=== PATIENT | male | born 1975 | race Caucasian/White ===

== ENCOUNTER 2018-06-21 09:31 | Emergency (ER) | payer BC ==
[2018-06-21 10:47] LABS: Urine Blood NEGATIVE (NEG); Urine Glucose NEGATIVE (NEG); Urine Protein NEGATIVE (NEG); Urine Specific Gravity 1.015 (1.005-1.030)
[2018-06-21 10:57] LABS: Absolute Lymphocytes (CBC) 1.8 K/uL (0.7-4.9); Absolute Monocytes 0.5 K/uL (0.1-1.3); Absolute Neutrophil 5.7 K/uL (1.8-8.0); Basophils % 0.5 % (0-1.3); Eosinophils % 1.7 % (0-4.4); Hematocrit 43.4 % (39.6-49.0); Lymphocytes % 21.5 % (15.3-44.8); MCH 32.4 pg (27.0-35.0); MCV 91.8 fL (80-100); MPV 8.8 fL (7.6-11.3); Monocytes % 6.5 % (3.3-12.3); RBC Red Blood Cell Count 4.73 M/uL (4.33-5.43)
[2018-06-21 10:58] LABS: Protime INR 1.11
[2018-06-21 11:11] LABS: ALT/SGPT 55 U/L (12-78); AST/SGOT 19 U/L (15-37); Albumin 4.5 g/dL (3.4-5.0); Alkaline Phosphatase 72 U/L (45-117); BUN Blood Urea Nitrogen 17 mg/dL (7-18); Bicarbonate 26 mmol/L (21-32); Bilirubin Direct 0.2 mg/dL (0-0.2); Bilirubin Total 0.8 mg/dL (0.2-1.0); Glucose Level 94 mg/dL (74-106); Magnesium 2.5 mg/dL (1.8-2.4); NT PRO-BNP 8 pg/mL (<125); Potassium 3.9 mmol/L (3.5-5.1); Protein, Total 8.1 g/dL (6.4-8.2); Sodium Level 137 mmol/L (136-145); Troponin (Emerg Dept Use Only) < 0.02 ng/mL (0.0-0.045)
--- NOTE | 2018-06-21 11:32 | RAD REPORT ---
EXAM DESCRIPTION: RAD - Chest Single View - 06/21/2018 10:57 am CLINICAL HISTORY: Chest pain COMPARISON: None. TECHNIQUE: AP portable chest image was obtained 1042 hours . FINDINGS: No comparison is available. Chronic interstitial lung disease is evident. Patient has sign ificant elevation of the right hemidiaphragm with bowel interposed between the liver and diaphragm. H eart and vasculature are normal. No measurable pleural effusion and no pneumothorax. No acute bony ab normality seen. No acute aortic findings suspected. IMPRESSION: Chronic interstitial lung disease on a baseline examination. No focal mass or consolidat ion.
--- NOTE | 2018-06-21 13:06 | ER ---
Nurse's Notes [facility] Name: Dao Mc Age: 42 yrs Sex: Male : 1975 Arrival Date: 06/21/2018 Time: 09:33 Bed 6 Private MD: Diagnosis: Chest pain, unspecified Presentation: 06/21 09:54 Presenting complaint: Patient states: Chest pain with deep breathing that started aj yesterday morning. Denies cough or fever. Transition of care: patient was not received from another setting of care. Onset of symptoms was June 20, 2018. Risk Assessment: Do you want to hurt yourself or someone else? Patient reports no desire to harm self or others. Initial Sepsis Screen: Does the patient meet any 2 criteria? No. Patient's initial sepsis screen is negative. Does the patient have a suspected source of infection? No. Patient's initial sepsis screen is negative. Care prior to arrival: None. 09:54 Method Of Arrival: Ambulatory aj 09:54 Acuity: FERDDIE 3 aj Triage Assessment: 09:57 General: Appears in no apparent distress. comfortable, Behavior is calm, cooperative, aj appropriate for age. Pain: Complains of pain in right clavicle and anterior aspect of right upper chest. Neuro: Level of Consciousness is awake, alert, obeys commands, Oriented to person, place, time, situation, Appropriate for age. Cardiovascular: Reports chest pain, Capillary refill < 3 seconds Patient's skin is warm and dry. Respiratory: Reports shortness of breath pain with respiration Airway is patent Respiratory effort is even, unlabored, Respiratory pattern is regular, symmetrical. Derm: Skin is intact, is healthy with good turgor, Skin is pink, warm \\T\\ dry. normal. Historical: - Allergies: 09:57 Amoxicillin; aj - Home Meds: 09:57 Fluoxetine Oral [Active]; Zyrtec 10 mg Oral tab 1 tab once daily [Active]; aj - PMHx: :57 Partially collapsed lung; aj - PSHx: 09:57 Diaphragmatic Plication; aj - Immunization history:: Adult Immunizations up to date. - Social history:: Smoking status: Patient/guardian denies using tobacco. - Ebola Screening: : Patient negative for fever greater than or equal to 101.5 degrees Fahrenheit, and additional compatible Ebola Virus Disease symptoms Patient denies exposure to infectious person Patient denies travel to an Ebola-affected area in the 21 days before illness onset No symptoms or risks identified at this time. Screenin:41 Abuse screen: Denies threats or abuse. Denies injuries from another. Nutritional bp screening: No deficits noted. Tuberculosis screening: No symptoms or risk factors identified. Fall Risk None identified. Assessment: 10:00 General: Appears in no apparent distress. comfortable, Behavior is calm, cooperative, bp appropriate for age. Pain: Complains of pain in anterior aspect of right upper chest Pain does not radiate. Pain began suddenly. Neuro: Level of Consciousness is awake, alert, obeys commands, Oriented to person, place, time, situation, Appropriate for age. Cardiovascular: No deficits noted. Respiratory: Airway is patent Respiratory effort is even, unlabored, Respiratory pattern is regular, symmetrical. GI: No signs and/or symptoms were reported involving the gastrointestinal system. : No signs and/or symptoms were reported regarding the genitourinary system. EENT: No deficits noted. Derm: No deficits noted. Musculoskeletal: Circulation, motion, and sensation intact. Range of motion: intact in all extremities. 10:40 Reassessment: Patient and/or family updated on plan of care and expected duration. Pain aa5 level reassessed. Patient is alert, oriented x 3, equal unlabored respirations, skin warm/dry/pink. Pt states "I don't need anything for the pain right now". Pt notified of wait time for lab results. Pt sitting up in bed, bed in low position, side rails x 2, call villarreal within reach. . 11:55 Reassessment: ALL CURRENT ORDERS COMPLETED, DISPO PENDING, VS STABLE ON MONITOR. bp 13:02 Reassessment: ALL CURRENT STUDIES COMPLETED, DISPO PENDING. bp 13:45 Reassessment: D/C ON HOLD FOR PULMONOLOGY C/S. bp 14:17 Reassessment: PT D/C HOME AMBULATORY, DX WITH NON-SPECIFIC CHEST PAIN. bp Vital Signs: 09:57 BP 128 / 91; Pulse 90; Resp 20; Temp 97.5; Pulse Ox 95% on R/A; Weight 102.06 kg; aj Height 6 ft. 2 in. (187.96 cm); 10:42 BP 126 / 85; Pulse 84; Resp 21; Pulse Ox 94% on R/A; mh5 11:56 BP 125 / 88; Pulse 69; Resp 19; Pulse Ox 95% ; bp 13:03 BP 134 / 91; Pulse 72; Resp 18; Pulse Ox 97% ; bp 09:57 Body Mass Index 28.89 (102.06 kg, 187.96 cm) ED Course: 09:33 Patient arrived in ED. rg4 09:38 Herve Borges MD is Attending Physician. kdr 09:55 Triage completed. aj 09:56 EKG done, by biomass technician. reviewed by Herve Borges MD. at1 09:57 Arm band placed on right wrist. Patient placed in an exam room. EKG completed in triage. Results shown to MD. 10:05 Cedrick Guillen, PAULINE is Primary Nurse. bp 10:38 Initial lab(s) drawn, by me, sent to lab. Inserted saline lock: 20 gauge in right aa5 antecubital area, using aseptic technique. Blood collected. 10:41 Patient has correct armband on for positive identification. Bed in low position. Call bp light in reach. Side rails up X2. maintenance technician 2nd shift on. Pulse ox on. NIBP on. 10:43 No provider procedures requiring assistance completed. aa5 10:43 Patient maintains SpO2 saturation greater than 95% on room air. aa5 10:43 Warm blanket given. mh5 10:56 X-ray completed. Portable x-ray completed in exam room. Patient tolerated procedure jb2 well. 10:57 XRAY Chest (1 view) In Process Unspecified. EDMS 13:30 IV discontinued, Pressure dressing applied. 5 13:30 IV discontinued, Pressure dressing applied. bp Administered Medications: No medications were administered Outcome: 13:05 Discharge ordered by . kdr 14:20 Discharged to home ambulatory. bp 14:20 Condition: stable 14:20 Discharge instructions given to patient, Instructed on discharge instructions, follow up and referral plans. medication usage, Demonstrated understanding of instructions, follow-up care, medications, Prescriptions given X 1. 14:21 Patient left the ED. bp Signatures: Dispatcher [employer] Crystal Tyson, RN Herve Jade MD MD kdr Kamar Samson jb2 Katia Welch RN RN aaCrystal Owen, dynamometer tester EKG Tat1 Jane Braga rg4 Kayla Georges 5 Cedrick Guillen, RN RN bp
--- NOTE | 2018-06-21 13:06 | EDPHYS ---
Physician Documentation [facility] Name: Dao Mc Age: 42 yrs Sex: Male : 1975 Arrival Date: 06/21/2018 Time: 09:33 Bed 6 Private MD: ED Physician Herve Borges HPI: 06/21 10:57 This 42 yrs old Male presents to ER via Ambulatory with complaints of Chest kdr Tightness, Breathing Difficulty. 10:57 The patient or guardian reports chest pain that is located primarily in the substernal kdr area, anterior chest wall, bilaterally, xyphoid area and mid-sternal area. Onset: suddenly, yesterday, Yesterday morning. The pain does not radiate. Associated signs and symptoms: Pertinent positives: shortness of breath, Pertinent negatives: diaphoresis, dizziness, headache, lower extremity pain, lower extremity swelling, lightheadedness, nausea, recent travel, shortness of breath, syncope, vomiting. The chest pain is described as aching. Duration: The patient or guardian reports a single episode, that is still ongoing. Severity of pain: At its worst the pain was mild in the emergency department the pain is unchanged. 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 Historical: - Allergies: 09:57 Amoxicillin; aj - Home Meds: 09:57 Fluoxetine Oral [Active]; Zyrtec 10 mg Oral tab 1 tab once daily [Active]; aj - PMHx: 09:57 Partially collapsed lung; aj - PSHx: 09:57 Diaphragmatic Plication; aj - Immunization history:: Adult Immunizations up to date. - Social history:: Smoking status: Patient/guardian denies using tobacco. - Ebola Screening: : Patient negative for fever greater than or equal to 101.5 degrees Fahrenheit, and additional compatible Ebola Virus Disease symptoms Patient denies exposure to infectious person Patient denies travel to an Ebola-affected area in the 21 days before illness onset No symptoms or risks identified at this time. ROS: 10:57 Constitutional: Negative for fever, chills, and weight loss, Eyes: Negative for injury, kdr pain, redness, and discharge, ENT: Negative for injury, pain, and discharge, Neck: Negative for injury, pain, and swelling, Abdomen/GI: Negative for abdominal pain, nausea, vomiting, diarrhea, and constipation, Back: Negative for injury and pain, : Negative for injury, bleeding, discharge, and swelling, MS/Extremity: Negative for injury and deformity, Skin: Negative for injury, rash, and discoloration, Neuro: Negative for headache, weakness, numbness, tingling, and seizure activity. Psych: Negative for depression, anxiety, suicide ideation, homicidal ideation, and hallucinations, Allergy/Immunology: Negative for hives, rash, and allergies, Endocrine: Negative for neck swelling, polydipsia, polyuria, polyphagia, and marked weight changes, Hematologic/Lymphatic: Negative for swollen nodes, abnormal bleeding, and unusual bruising. 10:57 Cardiovascular: Positive for chest pain, of the xyphoid area and mid-sternal area, Negative for edema, orthopnea, palpitations, paroxysmal nocturnal dyspnea, acute changes. 10:57 Respiratory: Positive for dyspnea on exertion, shortness of breath, Negative for cough, dyspnea on exertion, hemoptysis, orthopnea, pleurisy, sputum production, wheezing. Exam: 17:02 Constitutional: This is a well developed, well nourished patient who is awake, alert, kdr and in no acute distress. Head/Face: Normocephalic, atraumatic. Eyes: Pupils equal round and reactive to light, extra-ocular motions intact. Lids and lashes normal. Conjunctiva and sclera are non-icteric and not injected. Cornea within normal limits. Periorbital areas with no swelling, redness, or edema. Neck: Trachea midline, no thyromegaly or masses palpated, and no cervical lymphadenopathy. Supple, full range of motion without nuchal rigidity, or vertebral point tenderness. No Meningismus. Chest/axilla: Normal chest wall appearance and motion. Nontender with no deformity. No lesions are appreciated. Cardiovascular: Regular rate and rhythm with a normal S1 and S2. No gallops, murmurs, or rubs. Normal PMI, no JVD. No pulse deficits. Respiratory: Lungs have equal breath sounds bilaterally, clear to auscultation and percussion. No rales, rhonchi or wheezes noted. No increased work of breathing, no retractions or nasal flaring. Abdomen/GI: Soft, non-tender, with normal bowel sounds. No distension or tympany. No guarding or rebound. No evidence of tenderness throughout. Back: No spinal tenderness. No costovertebral tenderness. Full range of motion. Skin: Warm, dry with normal turgor. Normal color with no rashes, no lesions, and no evidence of cellulitis. MS/ Extremity: Pulses equal, no cyanosis. Neurovascular intact. Full, normal range of motion. Neuro: Awake and alert, GCS 15, oriented to person, place, time, and situation. Cranial nerves II-XII grossly intact. Motor strength 5/5 in all extremities. Sensory grossly intact. Cerebellar exam normal. Normal gait. Psych: Awake, alert, with orientation to person, place and time. Behavior, mood, and affect are within normal limits. Vital Signs: 09:57 BP 128 / 91; Pulse 90; Resp 20; Temp 97.5; Pulse Ox 95% on R/A; Weight 102.06 kg; aj Height 6 ft. 2 in. (187.96 cm); 10:42 BP 126 / 85; Pulse 84; Resp 21; Pulse Ox 94% on R/A; mh5 11:56 BP 125 / 88; Pulse 69; Resp 19; Pulse Ox 95% ; bp 13:03 BP 134 / 91; Pulse 72; Resp 18; Pulse Ox 97% ; bp 09:57 Body Mass Index 28.89 (102.06 kg, 187.96 cm) aj MDM: 13:05 Patient medically screened. kdr 13:28 ED course: Paged Dr. Goodman regarding patient condition. kdr 17:02 Data reviewed: vital signs, nurses notes, lab test result(s), radiologic studies. kdr Counseling: I had a detailed discussion with the patient and/or guardian regarding: the historical points, exam findings, and any diagnostic results supporting the discharge/admit diagnosis, lab results, radiology results, the need for outpatient follow up. 06/21 10:34 Order name: Basic Metabolic Panel; Complete Time: 12: kdr 06/21 10:34 Order name: CBC with Diff; Complete Time: 12: kdr 06/21 10:34 Order name: LFT's; Complete Time: 12: kdr 06/21 10:34 Order name: Magnesium; Complete Time: 12: kdr 06/21 10:34 Order name: NT PRO-BNP; Complete Time: 12: kdr 06/21 10:34 Order name: PT-INR; Complete Time: 12:01 [facility] [address] 06/21 10:34 Order name: Troponin (emerg Dept Use Only); Complete Time: 12:01 [facility] [address] 06/21 10:34 Order name: XRAY Chest (1 view); Complete Time: 12:01 kdr 06/21 10:34 Order name: EKG; Complete Time: 10:36 kdr 06/21 10:34 Order name: Cardiac monitoring; Complete Time: 10:42 kdr 06/21 10:34 Order name: EKG - Nurse/Tech; Complete Time: 10:42 [facility] [address] 06/21 10:34 Order name: IV Saline Lock; Complete Time: 10:42 kdr 06/21 10:34 Order name: Labs collected and sent; Complete Time: 10:42 [facility] [address] 06/21 10:43 Order name: Urine Dipstick--Ancillary (enter results); Complete Time: 12: 06/21 10:34 Order name: O2 Per Protocol; Complete Time: 10:42 [facility] [address] 06/21 10:34 Order name: O2 Sat Monitoring; Complete Time: 10:42 kdr Administered Medications: No medications were administered Disposition: 06/21/18 13:05 Discharged to Home. Impression: Chest pain, unspecified. - Condition is Stable. - Discharge Instructions: Nonspecific Chest Pain, [id number]. - Prescriptions for Tramadol 50 mg Oral Tablet - take 1 tablet by ORAL route every 8 hours as needed; 12 tablet. - Medication Reconciliation Form, Thank You Letter form. - Follow up: Private Physician; When: 2 - 3 days; Reason: If symptoms return, Further diagnostic work-up, Recheck today's complaints, Continuance of care, Re-evaluation by your physician. - Problem is new. - Symptoms are unchanged. Signatures: Dispatcher [employer] EDCA Crystal Parker RN RN Herve Sahu MD MD kdr Cedrick Guillen RN RN bp Corrections: (The following items were deleted from the chart) 14:21 13:05 06/21/2018 13:05 Discharged to Home. Impression: Chest pain, unspecified. bp Condition is Stable. Forms are Medication Reconciliation Form, Thank You Letter, Antibiotic Education, Prescription Opioid Use. Follow up: Private Physician; When: 2 - 3 days; Reason: If symptoms return, Further diagnostic work-up, Recheck today's complaints, Continuance of care, Re-evaluation by your physician. Problem is new. Symptoms are unchanged. kdr
--- NOTE | 2018-06-21 14:36 | EKG ---
Test Date: 2018-06-21 Test Time: 09:48:34 Tube Cutter: APOORVA MEASUREMENT RESULTS: Intervals: Rate: 83 LA: 172 QRSD: 102 QT: 362 QTc: 425 [place]: P: 65 LA: 172 QRS: 62 T: 65 INTERPRETIVE STATEMENTS: Normal sinus rhythm Normal ECG No previous ECG available for comparison Electronically Signed On 06-21-18 14:34:03 BACKER UP by Derik Griffiths
== END 2018-06-21 14:21 | disposition home or self-care (01) ==
LOC: ER 09:31
DX: R07.9 Chest pain, unspecified (principal); Z88.1 Allergy status to other antibiotic agents
CPT/HCPCS: 36415; 71045; 80048; 80076; 81003; 83735; 83880; 84484; 85025; 85610; 93005; 99285